=== PATIENT | female | born 1950 | race Caucasian/White ===

== ENCOUNTER → 2016-08-29 | Outpatient (CLI) | payer OTHER ==
[~2016-08-29] MED LIST: AMARYL4 MG PO; ASPIRIN E.C. 8181 MG PO; CALCIUM CITRATE1 TA1 PO; GLUCOPHAGE500 MG/TAB PO; LIPITOR 40MG TA40 MG PO; LOPRESSOR 550 MG/TAB PO; MIRAPEX0.5 MG PO; OMNICEF 300MG300 MG PO; PAXIL 20MG20 MG PO; PRILOSEC 20MG20 MG PO; SYNTHROID 0.10.15 MG PO; VITAMIN B121000 MC2 SL; ZESTRIL2.5 MG PO
== END ==
LOC: BHSO 09:56
DX: F33.41 Major depressive disorder, recurrent, in partial remission (principal)
CPT/HCPCS: 90791-AI

== ENCOUNTER → 2016-09-28 | Outpatient (CLI) | payer OTHER | LOC: BHSO 11:36 | DX: F31.81 Bipolar II disorder (principal) ==

== ENCOUNTER → 2016-10-26 | Outpatient (CLI) | payer OTHER | LOC: BHSO 13:54 | DX: F33.42 Major depressive disorder, recurrent, in full remission (principal) ==

== ENCOUNTER 2021-02-19 10:30 | Outpatient (RCR) | payer OTHER, MEDICARE | END 2021-02-22 14:20 | disposition home or self-care (01) | LOC: WSPT 10:30 | DX: S93.402D Sprain of unspecified ligament of left ankle, subsequent encounter (principal); X58.XXXD Exposure to other specified factors, subsequent encounter ==

== ENCOUNTER → 2021-03-10 | Outpatient (CLI) | payer MEDICARE, OTHER | LOC: COL.RAD 11:48 | DX: M75.111 Incomplete rotator cuff tear or rupture of right shoulder, not specified as traumatic (principal); M75.51 Bursitis of right shoulder; S46.111A Strain of muscle, fascia and tendon of long head of biceps, right arm, initial encounter ==